=== PATIENT | male | born 1970 | race American Indian/Alaskan Native ===

== ENCOUNTER 2020-04-26 10:15 | Outpatient (CLI) | payer BC ==
[2020-04-26 13:26] LABS: Bilirubin,Urine NEG (Negative); Blood,Urine NEG (Negative); Color,Urine Yellow (Yellow); Mucus,Urine FEW /HPF; Protein,Urine <15 mg/dL mg/dL (Negative); Urobilinogen,Urine < 2.0 mg/dL (<2.0)
[2020-04-26 13:32] LABS: Basophils % (Auto) 0.4 % (0.0-1.8); Eosinophils # (Auto) 0.1 K/mm3 (0.0-0.4); Eosinophils % (Auto) 1.5 % (0.0-4.3); Hematocrit 43.8 % (35.5-45.6); Hemoglobin 14.8 gm/dl (11.8-15.2); Lymphocytes # (Auto) 1.2 K/mm3 (1.2-5.4); Lymphocytes % (Auto) 28.4 % (13.4-35.0); Mean Corpuscular HGB Conc 34 % (32-34); Mean Corpuscular Volume 94 fl (84-94); Monocytes # (Auto) 0.4 K/mm3 (0.0-0.8); Monocytes % (Auto) 9.3 % (0.0-7.3); Platelet Count 190 K/mm3 (140-440); Red Blood Count 4.63 M/mm3 (3.65-5.03); Red Cell Distribution Width 13.4 % (13.2-15.2)
[2020-04-26 13:34] LABS: Alanine Aminotransferase 34 units/L (7-56); Albumin 4.4 g/dL (3.9-5); BUN/Creatinine Ratio 15; Blood Urea Nitrogen 12 mg/dL (9-20); Calcium 9.3 mg/dL (8.4-10.2); Chol/HDL Ratio 2.74 %; HDL Cholesterol 63 mg/dL (40-59); Hemolysis Index 7; LDL Cholesterol,Direct 116 mg/dL (50-130)
--- NOTE | 2020-04-26 17:42 | Magnetic Resonance Report ---
MRI RIGHT KNEE WITHOUT CONTRAST INDICATION: PAIN IN RIGHT KNEE. COMPARISON: None available. TECHNIQUE: Multiplanar, multisequence MR images were obtained. FINDINGS: ACL: Mucoid ACL. PCL: No significant abnormality. MEDIAL MENISCUS: Complete radial tear posterior horn medial meniscus with 7 mm gap on coronal image 1 0. Moderate sized horizontal tear body medial meniscus LATERAL MENISCUS: No significant abnormality. DISTAL QUADRICEPS TENDON: No significant abnormality. PATELLAR TENDON: No significant abnormality. MCL: Moderately thickened from remote chronic tear LCL: No significant abnormality. DISTAL IT BAND: No significant abnormality. POSTEROLATERAL CORNER: No significant abnormality. PATELLOFEMORAL ALIGNMENT: No significant abnormality. ARTICULAR CARTILAGE: Full-thickness chondral loss medial femoral tibial compartment with underlying s ubchondral cystic change medial femoral condyle. Mild degenerative arthrosis lateral femoral tibial p atellofemoral compartments JOINT SPACE: Moderate knee effusion and synovitis moderate popliteal cyst without rupture No intra-ar ticular bodies. BONES: No significant bone marrow edema. No fracture. No osseous lesion. SUBCUTANEOUS SOFT TISSUES: No significant abnormality. ADDITIONAL FINDINGS: None. IMPRESSION: 1. Complete radial tear posterior horn medial meniscus with horizontal degenerative tear body medial meniscus 2. 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 3. Chronic MCL sprain Signer Name: Jamel Stark MD Signed: 04/26/2020 5:37 PM Workstation Name: [id number]
[2020-04-30] MEDS ORDERED: GELATIN SPONGE SIZE 100 TP ONE (12:21)
[2020-05-01 09:51] LABS: Vitamin D, 25-OH, D2 <4 ng/mL
== END 2020-04-26 10:16 | disposition home or self-care (01) ==
LOC: LAB 10:15 → MRI 10:15 → LAB 10:16
PROVIDERS: ATTEND Internal Medicine
DX: S83.241A Other tear of medial meniscus, current injury, right knee, initial encounter (principal); Z00.00 Encounter for general adult medical examination without abnormal findings; Z13.220 Encounter for screening for lipoid disorders; Z13.29 Encounter for screening for other suspected endocrine disorder; Z13.21 Encounter for screening for nutritional disorder; N52.9 Male erectile dysfunction, unspecified; R39.11 Hesitancy of micturition; M17.11 Unilateral primary osteoarthritis, right knee; X58.XXXA Exposure to other specified factors, initial encounter; Y93.89 Activity, other specified; Y92.89 Other specified places as the place of occurrence of the external cause; Y99.8 Other external cause status
CPT/HCPCS: 36415; 73721; 80053; 80061; 81001; 82306; 82607; 83036; 84153; 84443; 85025

== ENCOUNTER 2021-05-28 07:01 | Outpatient (CLI) | payer BC ==
--- NOTE | 2021-05-28 09:33 | XRay Report ---
BILATERAL KNEES 3 VIEWS INDICATION: PAIN. COMPARISON: None. IMPRESSION: Normal bone mineralization. Mild to moderate tricompartmental osteoarthritic changes are identified. The right knee appears slightly more affected. Moderate bilateral joint effusions are id entified. No acute osseous abnormality or bone lesion. Signer Name: Flip Vaca Jr, MD Signed: 05/28/2021 9:29 AM Workstation Name: [id number]
--- NOTE | 2021-05-28 10:04 | Magnetic Resonance Report ---
MRI RIGHT KNEE WITHOUT CONTRAST INDICATION: POSTERIOR KNEE PAIN. COMPARISON: None available. TECHNIQUE: Multiplanar, multisequence MR images were obtained. FINDINGS: ACL: Mucoid ACL PCL: No significant abnormality. MEDIAL MENISCUS: Near complete radial tear involving the posterior horn/root attachment medial menisc us with only a thin peripheral fibers still intact. Degenerative signal within slightly extruded body medial meniscus. LATERAL MENISCUS: No significant abnormality. DISTAL QUADRICEPS TENDON: No significant abnormality. PATELLAR TENDON: No significant abnormality. MCL: No significant abnormality. LCL: No significant abnormality. DISTAL IT BAND: No significant abnormality. POSTEROLATERAL CORNER: No significant abnormality. PATELLOFEMORAL ALIGNMENT: No significant abnormality. ARTICULAR CARTILAGE: Full-thickness chondral loss medial femoral tibial compartment with small osteop hytes and mild subchondral cystic change. Moderate chondrosis patellofemoral compartment JOINT SPACE: Small joint effusion and mild synovitis. Tiny popliteal cyst. No intra-articular bodies. BONES: No significant bone marrow edema. No fracture. No osseous lesion. SUBCUTANEOUS SOFT TISSUES: No significant abnormality. ADDITIONAL FINDINGS: None. IMPRESSION: 1. Near complete radial tear posterior horn/root attachment medial meniscus. 2. 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 Moderate patellofemoral chondrosis Signer Name: Jamel Stark MD Signed: 05/28/2021 10:00 AM Workstation Name: [id number]
--- NOTE | 2021-05-28 10:12 | Magnetic Resonance Report ---
MRI LEFT KNEE WITHOUT CONTRAST INDICATION / CLINICAL INFORMATION: PAIN POSTERIOR KNEE. TECHNIQUE: Multiplanar, multisequence MR images were obtained. No contrast used. COMPARISON: Radiographs 05/28/2021 FINDINGS: ACL: Mucoid degeneration of ACL. PCL: No significant abnormality. DISTAL QUADRICEPS TENDON: No significant abnormality. PATELLAR TENDON: No significant abnormality. MEDIAL MENISCUS: Complex radial tear of the posterior horn involving the root. Mild extrusion. LATERAL MENISCUS: Degenerative tear body lateral meniscus MCL: No significant abnormality. LCL: No significant abnormality. DISTAL IT BAND: No significant abnormality. PATELLOFEMORAL ALIGNMENT: - PATELLA DAVID vs. BAJA: None. - PATELLAR TRANSLATION: Lateral -- Moderate. - PATELLAR TILT: None. - TT-TG DISTANCE: 1.9 cm (normal <= 1.5 cm) - TROCHLEAR DYSPLASIA: Normal shape of the trochlea, but a shallow trochlear groove. - FAT PAD EDEMA: None. - MPFL: No significant abnormality. ARTICULAR CARTILAGE: Moderate tricompartmental DJD. JOINT SPACE: Moderate joint effusion with synovitis. No significant popliteal cyst. No intra-articula r bodies. BONES: No significant bone marrow edema. No fracture. No osseous lesion. SOFT TISSUES: No significant abnormality. ADDITIONAL FINDINGS: None. IMPRESSION: 1. Complex tear of the posterior horn of medial meniscus with involvement of root. The lateral menisc us is severely attenuated with increased signal and extrusion but no discrete tear identified. 2. Moderate tricompartmental DJD. 3. Moderate joint effusion with synovitis. Report dictated by: Yair Juarez MD Report dictated on: 05/28/2021 8:55 AM I have reviewed the images, agree with this report, and edited this report as needed. Signer Name: Jamel Stark MD Signed: 05/28/2021 10:08 AM Workstation Name: [id number]
== END 2021-05-28 07:02 | disposition home or self-care (01) ==
LOC: MRI 07:01
PROVIDERS: ATTEND Orthopaedic Surgery
DX: S83.242A Other tear of medial meniscus, current injury, left knee, initial encounter (principal); S83.282A Other tear of lateral meniscus, current injury, left knee, initial encounter; S83.241A Other tear of medial meniscus, current injury, right knee, initial encounter; M17.12 Unilateral primary osteoarthritis, left knee; M25.462 Effusion, left knee; M25.762 Osteophyte, left knee; M25.461 Effusion, right knee; M65.861 Other synovitis and tenosynovitis, right lower leg; M71.21 Synovial cyst of popliteal space [Baker], right knee; X58.XXXA Exposure to other specified factors, initial encounter; Y93.89 Activity, other specified; Y92.89 Other specified places as the place of occurrence of the external cause; M65.862 Other synovitis and tenosynovitis, left lower leg
CPT/HCPCS: 73721

== ENCOUNTER 2021-06-14 07:55 | Outpatient (CLI) | payer BC ==
[2021-06-14 09:01] LABS: Basophils % (Auto) 0.3 % (0.0-1.8); Eosinophils # (Auto) 0.1 K/mm3 (0.0-0.4); Eosinophils % (Auto) 1.8 % (0.0-4.3); Hematocrit 46.9 % (35.5-45.6); Hemoglobin 15.6 gm/dl (11.8-15.2); Lymphocytes # (Auto) 1.4 K/mm3 (1.2-5.4); Lymphocytes % (Auto) 23.2 % (13.4-35.0); Mean Corpuscular HGB Conc 33 % (32-34); Mean Corpuscular Volume 92 fl (84-94); Monocytes # (Auto) 0.5 K/mm3 (0.0-0.8); Monocytes % (Auto) 8.5 % (0.0-7.3); Platelet Count 207 K/mm3 (140-440); Red Blood Count 5.11 M/mm3 (3.65-5.03); Red Cell Distribution Width 14.3 % (13.2-15.2)
[2021-06-14 09:25] LABS: Alanine Aminotransferase 25 units/L (7-56); Albumin 4.7 g/dL (3.9-5); BUN/Creatinine Ratio 20; Blood Urea Nitrogen 16 mg/dL (9-20); Calcium 9.4 mg/dL (8.4-10.2); Chol/HDL Ratio 2.88 %; HDL Cholesterol 60 mg/dL (40-59); Hemolysis Index 5; LDL Cholesterol,Direct 105 mg/dL (50-130)
== END 2021-06-14 07:56 | disposition home or self-care (01) ==
LOC: LAB 07:55
PROVIDERS: ATTEND Internal Medicine
DX: Z00.00 Encounter for general adult medical examination without abnormal findings (principal); I10 Essential (primary) hypertension; E55.9 Vitamin D deficiency, unspecified; R53.83 Other fatigue; E66.9 Obesity, unspecified
CPT/HCPCS: 36415; 80053; 80061; 82306; 84443; 85025

== ENCOUNTER 2021-11-07 09:25 | Outpatient (CLI) | payer BC | END 2021-11-07 09:26 | disposition home or self-care (01) | LOC: LABHHL 09:25 | PROVIDERS: ATTEND Internal Medicine | DX: R73.9 Hyperglycemia, unspecified (principal) | CPT/HCPCS: 36415; 83036 ==

== ENCOUNTER 2022-01-07 12:17 | Emergency (ER) | payer BC ==
[2022-01-07 17:04] LABS: Hematocrit 42.8 % (35.5-45.6); Hemoglobin 14.6 gm/dl (11.8-15.2); Mean Corpuscular HGB Conc 34 % (32-34); Mean Corpuscular Volume 93 fl (84-94); Platelet Count 203 K/mm3 (140-440); Red Blood Count 4.62 M/mm3 (3.65-5.03); Red Cell Distribution Width 13.9 % (13.2-15.2)
[2022-01-07 17:26] LABS: Alanine Aminotransferase 31 units/L (7-56); Albumin 4.7 g/dL (3.9-5)
[2022-01-07 17:34] LABS: Bilirubin,Direct < 0.2 mg/dL (0-0.2)
== END 2022-01-07 15:18 | disposition left against medical advice (07) ==
LOC: ED 12:17
DX: Z00.00 Encounter for general adult medical examination without abnormal findings (principal); Z53.21 Procedure and treatment not carried out due to patient leaving prior to being seen by health care provider
CPT/HCPCS: 36415; 80076; 84153; 84403; 85027